=== PATIENT | female | born 1965 ===

== ENCOUNTER 2017-12-11 15:27 | Emergency (ER) | payer OTHER ==
[2017-12-11 15:40] VITALS: BMI 27.3
--- NOTE | 2017-12-11 16:15 | RAD ---
PROCEDURE: CHEST RADIOGRAPH, 1 VIEW HISTORY: Chest pain COMPARISON: None available. FINDINGS: LUNGS: The lungs are clear. PLEURA: No pneumothorax or pleural fluid seen. CARDIOVASCULAR: Normal. OSSEOUS STRUCTURES: No significant abnormalities. VISUALIZED UPPER ABDOMEN: Normal. OTHER FINDINGS: None. IMPRESSION: No active pulmonary disease.
[2017-12-11 17:21] LABS: BASO % 0.5 % (0.0-2.0); EOS # 0.1 K/uL (0.0-0.7); HEMOGLOBIN 14.9 g/dL (11.0-16.0); LYMPH # 2.2 K/uL (1.0-4.3); LYMPH % 33.9 % (20.0-40.0); MEAN CELL VOLUME 89.3 fL (81.0-99.0); MEAN CORPUSCULAR HEMOGLOBIN 29.4 pg (27.0-31.0); MEAN CORPUSCULAR HGB CONC 32.9 g/dL (33.0-37.0); MEAN PLATELET VOLUME 9.4 fL (7.2-11.7); MONO # 0.5 K/uL (0.0-0.8); MONO % 6.9 % (0.0-10.0); NEUT # 3.7 K/uL (1.8-7.0); NEUT % 57.7 % (50.0-75.0); RBC 5.07 Mil/uL (3.80-5.20); RED CELL DISTRIBUTION WIDTH 14.1 % (11.5-14.5); WHITE BLOOD COUNT 6.5 K/uL (4.8-10.8)
[2017-12-11 17:48] LABS: ALB/GLOB RATIO 1.2 (1.0-2.1); ALBUMIN 4.6 g/dL (3.5-5.0); ALT/SGPT 40 U/L (9-52); AST/SGOT 27 U/L (14-36); B-TYPE NATRIURETIC PEPTIDE 81.1 pg/mL (0-900); BLOOD UREA NITROGEN 10 mg/dL (7-17); CALCIUM 9.4 mg/dl (8.6-10.4); GFR AFRICAN-AMERICAN > 60; GFR NON-AFRICAN AMERICAN > 60
--- NOTE | 2017-12-11 18:35 | C.PDOC ---
Time Seen by Provider: 12/11/17 16:00 Chief Complaint (Nursing): Chest Pain Past Medical History Vital Signs: Last Vital Signs Temp 98.8 F 12/11/17 18:27 Pulse 75 12/11/17 18:27 Resp 18 12/11/17 18:27 BP 142/83 12/11/17 18:27 Pulse Ox 97 12/11/17 18:27 - Medical History PMH: Hypercholesterolemia Denies: Chronic Kidney Disease - Social History Hx Alcohol Use: No Hx Substance Use: No ED Course And Treatment - Laboratory Results Result Diagrams: 12/11/17 17:16 12/11/17 17:16 O2 Sat by Pulse Oximetry: 97 Medical Decision Making Medical Decision Making: chest wall pain/atypical chest pain heart score - 2 will repeat troponin at 4 hours case s/o to Dr. Black at 1900 patient symptoms improved. Disposition - Disposition
--- NOTE | 2017-12-11 18:35 | C.PDOC ---
History Of Present Illness 52-year-old female, presents to the emergency department with complaints of two day duration of chest pain that is described as sharp, and worse with deep breathing. Patient denies any DVT or PE history. Denies smoking, nausea/vomiting , or any other associated symptoms. No other complaints at this time. Time Seen by Provider: 12/11/17 16:00 Chief Complaint (Nursing): Chest Pain History Per: Patient History/Exam Limitations: no limitations Current Symptoms Are (Timing): Still Present Severity: Moderate Past Medical History Reviewed: Historical Data, Nursing Documentation, Vital Signs Vital Signs: Last Vital Signs Temp 98.8 F 12/11/17 18:27 Pulse 75 12/11/17 18:27 Resp 18 12/11/17 18:27 BP 142/83 12/11/17 18:27 Pulse Ox 99 12/11/17 18:46 - Medical History PMH: Hypercholesterolemia Denies: Chronic Kidney Disease Family History: States: No Known Family Hx - Social History Hx Alcohol Use: No Hx Substance Use: No Review Of Systems Constitutional: Negative for: Fever, Chills Cardiovascular: Positive for: Chest Pain. Negative for: Palpitations, Edema, Light Headedness Respiratory: Negative for: Shortness of Breath Gastrointestinal: Negative for: Nausea, Vomiting, Abdominal Pain Musculoskeletal: Negative for: Neck Pain, Arm Pain, Back Pain Neurological: Negative for: Weakness, Numbness Physical Exam - Physical Exam Appears: Non-toxic, No Acute Distress Skin: Normal Color, Warm, Dry, No Rash Head: Atraumatic, Normacephalic Eye(s): bilateral: Normal Inspection Nose: Normal Oral Mucosa: Moist Lips: Normal Appearing Neck: Normal ROM Chest: Symmetrical, Tenderness (reproducible) Cardiovascular: Rhythm Regular, No Murmur Respiratory: Normal Breath Sounds, No Accessory Muscle Use Gastrointestinal/Abdominal: Soft, No Tenderness, No Guarding, No Rebound Extremity: Normal ROM, No Deformity, No Swelling Neurological/Psych: Oriented x3, Normal Speech ED Course And Treatment - Laboratory Results Result Diagrams: 12/11/17 17:16 12/11/17 17:16 ECG: Interpreted By Me, Viewed By Me ECG Rhythm: Sinus Rhythm ECG Interpretation: No Acute Changes Rate From EC O2 Sat by Pulse Oximetry: 99 (RA) Pulse Ox Interpretation: Normal Medical Decision Making Medical Decision Making: patient improved on reevaluation heart score - 2 will repeat troponin in 4 hours case s/o to DR. Black at 1900 Disposition Counseled Patient/Family Regarding: Studies Performed, Diagnosis - Disposition Disposition Time: 19:00 Condition: FAIR Forms: [facility] (Romansh) - Clinical Impression Clinical Impression: Chest pain - Scribe Statement The provider has reviewed the documentation as recorded by the Scribe (Nany Gonzalez) All medical record entries made by the Scribe were at my direction and personally dictated by me. I have reviewed the chart and agree that the record accurately reflects my personal performance of the history, physical exam, medical decision making, and the department course for this patient. I have also personally directed, reviewed, and agree with the discharge instructions and disposition. Physician Patient Turnover Patient Signed Over To: Diana Black Handoff Comments: 07:00pm. Pending repeat Trop and disposition
[2017-12-11 22:53] VITALS: BP 159/94; PULSE 87; RESP 22; TEMP 98.1; O2SAT 98
== END 2017-12-11 22:58 | disposition home or self-care (01) ==
LOC: C.ER 15:27
DX: R07.9 Chest pain, unspecified (principal); E78.00 Pure hypercholesterolemia, unspecified
CPT/HCPCS: 71045; 80053; 83880; 84484; 85025; 85378; 93005; 96374; 99285; J1885

== ENCOUNTER 2018-01-09 06:31 | Day surgery (SDC) | payer OTHER ==
[2017-12-11 16:06] VITALS: BMI 27.3
[~2018-01-09 06:31] MED LIST: Lactated Ringer's 500 ML IV ONE; Phenylephrine 2.5% Opht Soln OD SCH
[2018-01-09 07:34] VITALS: O2SAT 100
[2018-01-09] MEDS ORDERED: Tobramycin/Dexamethasone OPHT OINT ONE (07:35)
[2018-01-09] MEDS ORDERED: Tetracaine 0.5% Ophth (OR ONLY) ONE (07:35)
[2018-01-09] MEDS ORDERED: Lidocaine 2% MPF (5 ml) Inj ONE (07:35)
[2018-01-09] MEDS ORDERED: Gentamicin 80 mg/2mL Inj. ONE (07:35)
[2018-01-09] MEDS ORDERED: MethylPREDNISolone 40 mg Vial ONE (07:35)
[2018-01-09] MEDS ORDERED: Hyaluronidase Human, Recombi 150 U/ML VIAL ONE (07:36)
[2018-01-09] MEDS ORDERED: Lidocaine 2% w Epi 1:100,000 Inj IJ STA (07:39)
[2018-01-09] MEDS ORDERED: Lidocaine/Epinephrine 1% 1:100000 10 ML IJ ONE (07:40)
[2018-01-09] MEDS ORDERED: Lactated Ringer's 500 ML IV ONE (07:50)
[2018-01-09] MEDS ORDERED: Propofol 10 mg/ml Inj (20 ML) ONE (09:18)
[2018-01-09 12:26] VITALS: BP 112/66; PULSE 77; RESP 17; TEMP 98
--- NOTE | 2018-01-09 20:02 | OP ---
PROCEDURE DATE: 01/09/2018 PREOPERATIVE DIAGNOSIS: Peripheral progressive pterygium, right eye. POSTOPERATIVE DIAGNOSIS: Peripheral progressive pterygium, right eye. PROCEDURE: Pterygium excision with autograft. ATTENDING SURGEON: Ariel Wolfe MD ANESTHESIA: Retrobulbar block. COMPLICATIONS: None. ESTIMATED BLOOD LOSS: 0.5 mL. DESCRIPTION OF PROCEDURE: The patient was brought to the operating room and properly identified. Anesthesia staff gave IV sedation. Retrobulbar block was given to the right eye with no complications. The patient was then prepped and draped in the usual sterile fashion, sitting superiorly. A 0.12 was used to hold the nasal pterygium. Lidocaine with epinephrine was injected into the pterygium. Then, a Brayan scissor was used to remove the pterygium. A andreia alberto was used for the corneal portion. Hemostasis was maintained by cautery. Mitomycin C 0.02% was placed on the bare sclera for one and half minutes and then washed away with BSS solution. Once that was complete, an autograft was created from the superior portion of the conjunctiva. This was glued into place over the bare sclera using Tisseel glue. Once that was completed, subconjunctival antibiotics and steroids were given. The eye was covered with soft patch and shield. The patient was returned to the recovery room in stable condition. Ariel Wolfe MD
== END 2018-01-09 10:30 | disposition home or self-care (01) ==
LOC: C.SDS 06:31
PROVIDERS: ATTEND Ophthalmology
DX: H11.051 Peripheral pterygium, progressive, right eye (principal)
CPT/HCPCS: 65426; 82948; 88304; J1580; J2704; J2920; J3470; J7120

== ENCOUNTER 2018-06-25 23:22 | Emergency (ER) | payer OTHER ==
[2018-06-25 23:23] VITALS: BMI 27.3
[2018-06-25 23:38] VITALS: TEMP 97.9
[2018-06-26 00:18] VITALS: RESP 18
[2018-06-26] MEDS ORDERED: Sodium Chloride 0.9% 1,000 ML IV ONE (00:20)
--- NOTE | 2018-06-26 00:23 | C.PDOC ---
History Of Present Illness 52 year old female presents to the ER with a complaint of intermittent chest pain that began this morning. Patient states the pain increases with deep inspiration and movement. Denies SOB or diaphoresis. Chief Complaint (Nursing): Chest Pain History Per: Patient History/Exam Limitations: no limitations Onset/Duration Of Symptoms: Hrs, Intermittent Episodes Current Symptoms Are (Timing): Still Present Modifying Factors: None Exacerbating Factors: Movement, Deep Breathing Alleviating Factors: None Recent travel outside of the [place]: No Past Medical History Reviewed: Historical Data, Nursing Documentation, Vital Signs Vital Signs: Last Vital Signs Temp 97.9 F 06/25/18 23:34 Pulse 89 06/26/18 00:17 Resp 18 06/26/18 00:17 BP 133/85 06/26/18 00:17 Pulse Ox 20 L 06/26/18 00:17 - Medical History PMH: Hypercholesterolemia Denies: Chronic Kidney Disease Family History: States: Unknown Family Hx - Social History Hx Alcohol Use: No Hx Substance Use: No Review Of Systems Constitutional: Negative for: Fever, Chills Cardiovascular: Positive for: Chest Pain Respiratory: Negative for: Cough, Shortness of Breath Gastrointestinal: Negative for: Nausea, Vomiting Neurological: Negative for: Weakness, Numbness Physical Exam - Physical Exam Appears: Non-toxic Skin: Normal Color, Warm, Dry Head: Atraumatic, Normacephalic Eye(s): bilateral: Normal Inspection Oral Mucosa: Moist Neck: Normal, Supple Chest: Symmetrical, No Tenderness Cardiovascular: Rhythm Regular Respiratory: Normal Breath Sounds, No Rales, No Rhonchi, No Wheezing Gastrointestinal/Abdominal: Soft, No Tenderness Neurological/Psych: Oriented x3, Normal Speech ED Course And Treatment - Laboratory Results Result Diagrams: 06/26/18 00:28 06/26/18 00:28 ECG: Interpreted By Me, Viewed By Me ECG Rhythm: Sinus Rhythm ECG Interpretation: Normal, No Acute Changes Interpretation Of ECG: NSR, normal tracings, Rate From EC O2 Sat by Pulse Oximetry: 96 Pulse Ox Interpretation: Normal Progress Note: EKG, blood work, and CXR ordered. Toradol and IV fluids admi nistered. Disposition Counseled Patient/Family Regarding: Diagnosis - Disposition Referrals: [facility] [Outside] Disposition: HOME/ ROUTINE Disposition Time: 02:36 Condition: STABLE Prescriptions: Naproxen 375 mg PO TIDPC #14 tablet Instructions: Costochondritis (DC) Forms: [facility] (Mosotho), Gen Discharge Inst Liberian Print Language: YI - POA Present On Arrival: None - Clinical Impression Clinical Impression: Chest wall pain - Scribe Statement The provider has reviewed the documentation as recorded by the Scribsy Burrows All medical record entries made by the Scribe were at my direction and personally dictated by me. I have reviewed the chart and agree that the record accurately reflects my personal performance of the history, physical exam, medical decision making, and the department course for this patient. I have also personally directed, reviewed, and agree with the discharge instructions and disposition.
[2018-06-26 00:31] LABS: BASO % 0.4 % (0.0-2.0); EOS % 0.6 % (0.0-4.0); HEMOGLOBIN 14.3 g/dL (11.0-16.0); LYMPH # 2.1 K/uL (1.0-4.3); LYMPH % 27.9 % (20.0-40.0); MEAN CELL VOLUME 91.2 fL (81.0-99.0); MEAN CORPUSCULAR HEMOGLOBIN 30.4 pg (27.0-31.0); MEAN CORPUSCULAR HGB CONC 33.4 g/dL (33.0-37.0); MEAN PLATELET VOLUME 9.5 fL (7.2-11.7); MONO # 0.6 K/uL (0.0-0.8); MONO % 7.5 % (0.0-10.0); NEUT # 4.9 K/uL (1.8-7.0); NEUT % 63.6 % (50.0-75.0); NRBC % 0.1 % (0.0-2.0); RBC 4.7 Mil/uL (3.80-5.20); RED CELL DISTRIBUTION WIDTH 13.6 % (11.5-14.5); WHITE BLOOD COUNT 7.7 K/uL (4.8-10.8)
[2018-06-26] MEDS ORDERED: Sodium Chloride 0.9% 1,000 ML ONE (00:31)
[2018-06-26 00:56] LABS: ALB/GLOB RATIO 1.3 (1.0-2.1); ALBUMIN 4.5 g/dL (3.5-5.0); ALT/SGPT 34 U/L (9-52); AST/SGOT 22 U/L (14-36); BLOOD UREA NITROGEN 10 mg/dL (7-17); CALCIUM 9.3 mg/dl (8.6-10.4); GFR NON-AFRICAN AMERICAN > 60
[2018-06-26 01:41] VITALS: BP 135/78; PULSE 80
[2018-06-26 02:38] VITALS: O2SAT 96
--- NOTE | 2018-06-26 09:16 | RAD ---
Chest x-ray two views HISTORY: Chest pain. COMPARISON: 12/11/2017 Findings: Mild venous congestion. Bibasilar breast and nipple shadows. Small nodular density in the lateral aspect of the right midlung zone may represent vessel on end. Heart size within normal limits. Degenerative changes in the spine. Impression: No focal infiltrate or effusion. Mild venous congestion.
--- NOTE | 2018-06-26 21:28 | CARD ---
APPROVED REPORT Date of service: 06/25/2018 EKG Measurement Heart [id number] <Conclusion> Normal sinus rhythm Normal ECG
== END 2018-06-26 02:56 | disposition home or self-care (01) ==
LOC: C.ER 23:22
DX: R07.89 Other chest pain (principal); E78.00 Pure hypercholesterolemia, unspecified
CPT/HCPCS: 71046; 80053; 84484; 85025; 85378; 93005; 96374; 99284; J1885; J7030

== ENCOUNTER 2018-07-05 10:39 | Outpatient (CLI) | payer SELFPAY, OTHER | END 2018-07-05 10:40 | disposition home or self-care (01) | LOC: C.MRIC 10:39 | DX: M54.2 Cervicalgia (principal) ==

== ENCOUNTER 2018-07-25 11:20 | Outpatient (CLI) | payer SELFPAY | END 2018-07-25 11:21 | disposition home or self-care (01) | LOC: C.MAMMO 11:20 | DX: Z12.31 Encounter for screening mammogram for malignant neoplasm of breast (principal) ==